=== PATIENT | male | born 2005 | race Caucasian/White ===

== ENCOUNTER → 2024-09-04 15:28 | Outpatient (CLI) | payer BC, SELFPAY ==
--- NOTE | 2024-09-04 15:30 | DI.RAD.S_ITS ---
PROCEDURE: [place] ARTHROGRAM WRIST LT INDICATIONS: left wrist TFCC tear COMPARISON: None. TECHNIQUE: After informed consent had been obtained, the wrist was examined fluoroscopically, and a site chosen for injection of the radiocarpal compartment from a dorsal approach. Skin was prepped and draped in a sterile fashion and 1% lidocaine infiltrated from the skin down to the articular surface. A hypodermic needle was then introduced into the articular space and a modest amount of contrast medium was instilled confirming intra-articular needle tip placement. This was followed by approximately 4 mL of a dilute gadolinium solution. Needle was removed and dressing was applied. The patient experienced no complications throughout the procedure and left the fluoroscopic suite in no apparent distress. FINDINGS: A single fluoroscopic spot image demonstrates intra-articular location to injected iodinated contrast. IMPRESSION: Successful fluoroscopic-guided administration of dilute Gadolinium solution for wrist MR arthrogram. Approved by: Cayetano Lira M.D. on 09/04/2024 at 16:41
--- NOTE | 2024-09-04 15:31 | DI.MRI.S_ITS ---
PROCEDURE: MR WRIST LT W CON INDICATIONS: left wrist TFCC tear TECHNIQUE: After the administration of dilute intra-articular Gadolinium contrast into the radiocarpal compartment, coronal T1 spin echo with fat saturation and T2 fast spin echo with fat saturation, axial T1 spin echo and T2 fast spin echo with fat saturation, sagittal T1 spin echo with and without fat saturation through the wrist. COMPARISON: [facility], [place], [place] ARTHROGRAM WRIST LT, 09/04/2024, 16:04. [facility], [place], XR WRIST 3+ VIEWS BILATERAL, 08/24/2024, 16:08. FINDINGS: Image quality: Excellent. Bones: Marrow edema is present within the scaphoid, lunate, capitate, and trapezium (8/5-11). To a lesser extent, marrow edema is also present in the triquetrum (8/7). A few nondisplaced T1 hypointense fracture lines are noted (12/12) at the lunate, capitate, and at the dorsal aspect of the scaphoid waist (12/16). There is no evidence of carpal bone osteonecrosis. There is a type 1 lunate. Joints: There is no significant osteoarthritis. Gadolinium-based intra-articular fluid is present in the radiocarpal joint, which fails to extend into the midcarpal space or the distal radioulnar joint. Intrinsic Ligaments: The scapholunate and lunotriquetral intervals are normal. Although the slice resolution is suboptimal for evaluation, the intrinsic scapholunate and lunotriquetral ligaments are normal. Extrinsic Ligaments: The extrinsic ligaments are normal. Triangular Fibrocartilage Complex: The triangular fibrocartilage disc proper, distal dorsal and volar radioulnar ligaments, ulnar collateral ligament/meniscal homologue, ulnotriquetral, and ulnolunate ligaments are normal. Tendons: The flexor and extensor tendons are normal. Nerves: The median and ulnar nerves appear normal in size and signal. Other: No other acute abnormality. IMPRESSION: 1. Subacute, nondisplaced fractures of the scaphoid, lunate, capitate, and possibly the trapezium with associated marrow edema. Please correlate for a history of subacute traumatic injury. 2. No MR arthrographic evidence of a triangular fibrocartilage complex tear. Dictated by: Krzysztof Veliz M.D. on 09/07/2024 at 20:37 Approved by: Krzysztof Veliz M.D. on 09/07/2024 at 20:45
[2024-09-04] MEDS: LIDOCAINE 1% 20 ML INJ (16:02)
[2024-09-04] MEDS: SODIUM CHLORIDE 0.9 % 20 ML VIAL IV (16:02)
== END ==
PROVIDERS: PCP Family Medicine; Referring Provider Orthopaedic Surgery; Visit Provider Orthopaedic Surgery
DX: S62.015A Nondisplaced fracture of distal pole of navicular [scaphoid] bone of left wrist, initial encounter for closed fracture (principal); S62.125A Nondisplaced fracture of lunate [semilunar], left wrist, initial encounter for closed fracture; S62.135A Nondisplaced fracture of capitate [os magnum] bone, left wrist, initial encounter for closed fracture; M25.531 Pain in right wrist
CPT/HCPCS: 25246; 73115; 73222; A9579; Q9967

== ENCOUNTER → 2024-12-04 08:02 | Outpatient (CLI) | payer SELFPAY ==
--- NOTE | 2024-12-04 08:04 | DI.MRI.S_ITS ---
PROCEDURE: MR WRIST LT W CON INDICATIONS: Left Wrist Pain, Previous wrist surgery TECHNIQUE: After the administration of 3-4 mL of dilute intra-articular Gadolinium contrast into the radiocarpal compartment, coronal T1 spin echo with fat saturation and T2 fast spin echo with fat saturation, axial T1 spin echo and T2 fast spin echo with fat saturation, sagittal T1 spin echo with and without fat saturation through the wrist. COMPARISON: [facility]erged With [facility], MR, MR WRIST LT W CON, 09/04/2024, 16:11. FINDINGS: Image quality: Excellent. Bones and cartilage: The carpal bones are normally aligned. Compared to previous study, there is interval significant decrease in the amount of edema within the carpal bones suggestive of resolving contusion versus incomplete fracture. No new area of abnormal marrow signal. No MR evidence of avascular necrosis. Carpal ligaments: The scapholunate and lunotriquetral ligaments appear intact, without gadolinium extravasation into the mid-carpal compartment. The radioscaphocapitate and radiolunotriquetral ligaments appear intact. The dorsal intercarpal and radiotriquetral ligaments appear intact. On sagittal images, the pisohamate ligament appears intact. Triangular fibrocartilage complex: The triangular fibrocartilage disc, with its styloid and foveal lamina, appears intact. No gadolinium extravasation into the distal radioulnar joint. The adjacent meniscal homolog appears normal. The ulnar collateral ligament appears intact. The extensor carpi ulnaris tendon is normal in location and morphology. Tendons and soft tissues: The carpal tunnel structures appear normal, including the median nerve. The ulnar nerve appears normal within Guyon's canal. All six extensor tendon compartments demonstrate normal morphology, without pathologic tendon sheath fluid. No soft tissue ganglion cysts. IMPRESSION: 1. Interval significantly decreased in amount of marrow edema throughout carpal bones suggestive of healing bony contusion versus incomplete fractures in the carpal bones. No new area of abnormal marrow signal. No evidence of avascular necrosis. 2. Intrinsic and extrinsic wrist ligaments are grossly intact. 3. No evidence of triangular fibrocartilage tear. 4. Extensor and flexor tendons are within normal limits. Dictated by: Amaury Schwartz M.D. on 12/06/2024 at 2:54 Approved by: Amaury Schwartz M.D. on 12/06/2024 at 2:59
--- NOTE | 2024-12-04 08:04 | DI.RAD.S_ITS ---
PROCEDURE: [place] ARTHROGRAM WRIST LT INDICATIONS: PAIN IN LT WRIST COMPARISON: [facility], , [place] ARTHROGRAM WRIST LT, 09/04/2024, 16:04. TECHNIQUE: After informed consent had been obtained, the wrist was examined fluoroscopically, and a site chosen for injection of the radiocarpal compartment from a dorsal approach. Skin was prepped and draped in a sterile fashion and 1% lidocaine infiltrated from the skin down to the articular surface. A hypodermic needle was then introduced into the articular space and a modest amount of contrast medium was instilled confirming intra-articular needle tip placement. This was followed by approximately 4 mL of a dilute gadolinium solution. Needle was removed and dressing was applied. The patient experienced no complications throughout the procedure and left the fluoroscopic suite in no apparent distress. FINDINGS: A single fluoroscopic spot image demonstrates intra-articular location to injected iodinated contrast. IMPRESSION: Successful fluoroscopic-guided administration of dilute Gadolinium solution for wrist MR arthrogram. Dictated by: Kiko Morales M.D. on 12/04/2024 at 10:02 Approved by: Kiko Morales M.D. on 12/04/2024 at 10:03
[2024-12-04] MEDS: SODIUM CHLORIDE 0.9 % 20 ML VIAL IV (09:53)
[2024-12-04] MEDS: LIDOCAINE 1% 20 ML INJ (09:53)
== END ==
PROVIDERS: PCP Family Medicine; Referring Provider Orthopaedic Surgery Adult Reconstructive Orthopaedic Surgery; Visit Provider Orthopaedic Surgery Adult Reconstructive Orthopaedic Surgery
DX: M25.532 Pain in left wrist (principal); Z98.890 Other specified postprocedural states
CPT/HCPCS: 25246; 73115; 73222; A9579; Q9967